=== PATIENT | male | born 1955 | race African-American/Black ===

== ENCOUNTER 2018-01-19 10:25 | Emergency (ER) | payer OTHER ==
[~2018-01-19] VITALS: Ht 180.3 cm; Wt 83.6 kg
[~2018-01-19 10:25] MED LIST: ALBU17AE27 IH; BECL8.7A5 PO; FERR-89 PO; FLUT16H NASAL; GABA-318 PO; GLYB5 PO; HYDR-3965 PO; LISI40TA4 PO; LORA10TA7 PO; METF500T6 PO; PANT40TA25 PO
[2018-01-19 11:22] LABS: GLUCOSE,POINT OF CARE 133 MG/DL (70-110)
[2018-01-19] MEDS ORDERED: ACETAMINOPHEN 325 MG TABLET PO ONE (11:45)
[2018-01-19] MEDS ORDERED: GuaiFENesin/D-METHORPHAN [SUGAR-FREE] 200-20MG/10 ML SYRUP UDCUP PO ONE (11:45)
[2018-01-19] MEDS ORDERED: IPRATROPIUM BROMIDE 0.5 MG/2.5 ML NEB SOLUTION NEB ONE (11:45)
[2018-01-19] MEDS ORDERED: ALBUTEROL SULFATE 2.5 MG/0.5 ML NEB SOLUTION NEB ONE (11:45)
[2018-01-19] MEDS ORDERED: 0.9% SODIUM CHLORIDE 5 ML NEB SOLUTION NEB ONE (11:58)
[2018-01-19] MEDS ORDERED: AZITHROMYCIN 250 MG TABLET PO ONE (13:00)
[2018-01-19 13:13] VITALS: BP 148/68
== END 2018-01-19 13:13 | disposition home or self-care (01) ==
LOC: EMS 10:26
DX: J40 Bronchitis, not specified as acute or chronic (principal); E11.9 Type 2 diabetes mellitus without complications; I10 Essential (primary) hypertension; F17.210 Nicotine dependence, cigarettes, uncomplicated; Z88.0 Allergy status to penicillin; Z88.6 Allergy status to analgesic agent
CPT/HCPCS: 71046; 82962; 94640; 99284; J7613

== ENCOUNTER 2019-11-06 10:41 | Inpatient (IN) | payer MEDICARE, OTHER ==
[~2019-11-06] VITALS: Ht 180.3 cm; Wt 72.8 kg
[~2019-11-06 10:41] MED LIST changes: -GABA-318 PO; +GABA600T10 PO; +METF-960 PO; -METF500T6 PO
[2019-11-06] MEDS ORDERED: HYDR-4061 PO (11:10)
[2019-11-06] MEDS ORDERED: BECL10.62 IH (11:10)
[2019-11-06] MEDS ORDERED: ALBU8HFA IH (11:10)
[2019-11-06 11:15] LABS: GLUCOSE,POINT OF CARE 35 MG/DL (70-110)
[2019-11-06] MEDS ORDERED: DEXTROSE 50%-WATER 25 GM/50 ML SYRINGE IVP ONE ×2 (11:15→16:53)
[2019-11-06] MEDS ORDERED: DEXTROSE 5%-0.45% SODIUM CHL 1,000 ML IV ONE ×2 (11:15→12:00)
[2019-11-06] MEDS ORDERED: DEXTROSE 50%-WATER 25 GM/50 ML SYRINGE IVP PRN (12:00)
[2019-11-06 12:04] LABS: GLUCOSE,POINT OF CARE 155 MG/DL (70-110)
[2019-11-06 12:04] LABS: GLUCOSE,POINT OF CARE 259 MG/DL (70-110)
[2019-11-06] MEDS ORDERED: AmLODIPine BESYLATE 10 MG TABLET PO ONE (14:15)
[2019-11-06 14:49] LABS: GLUCOSE,POINT OF CARE 118 MG/DL (70-110)
[2019-11-06 14:49] LABS: GLUCOSE,POINT OF CARE 166 MG/DL (70-110)
[2019-11-06 15:16] VITALS: BP 169/87
[2019-11-06] MEDS: HEPARIN SODIUM,PORCINE 5,000 UNITS/ML VIAL SQ SCH (15:46)
[2019-11-06] MEDS ORDERED: SODIUM BICARBONATE [ADULT] 8.4% 50 MEQ/50 ML SYRINGE IVP ONE (16:53)
[2019-11-06] MEDS: INSULIN LISPRO 100 UNITS/ML SQ PRN ×2 (18:07→20:49)
[2019-11-06 19:01] VITALS: BP 174/88
[2019-11-06] MEDS: ACETAMINOPHEN 325 MG TABLET PO PRN (19:17)
[2019-11-06 19:30] VITALS: BP 143/79
[2019-11-06 19:44] LABS: BASOPHILS % (AUTO) 0.8 % (0.0-2.0); EOSINOPHILS % (AUTO) 1.3 % (1.0-6.0); HEMATOCRIT 41.7 % (41-53); HEMOGLOBIN 13.5 g/dL (13.5-17.5); LYMPHOCYTES # (AUTO) 2.3 K/uL (1.0-4.8); LYMPHOCYTES % (AUTO) 23.2 % (22.0-44.0); MEAN CORPUSCULAR HEMOGLOBIN 26.4 pg (26.0-34.0); MEAN CORPUSCULAR HGB CONC 32.4 G/dL (31.0-37.0); MEAN CORPUSCULAR VOLUME 81 fL (80-100); MONOCYTES # (AUTO) 0.9 K/uL (0.1-1.0); MONOCYTES % (AUTO) 8.8 % (2.0-9.0); NEUTROPHILS # (AUTO) 6.4 K/uL (1.8-7.7); NEUTROPHILS % (AUTO) 65.9 % (40.0-70.0); PLATELET COUNT (AUTO) 343 K/uL (150-450); RED BLOOD CELL COUNT(AUTO) 5.12 MIL/uL (4.50-5.90); RED CELL DISTRIBUTION WIDTH 15.8 % (11.5-14.5)
[2019-11-06 19:54] LABS: ANION GAP 7 mmol/L (8-16); CALCIUM, TOTAL 8.5 mg/dL (8.8-10.5); CARBON DIOXIDE 30 mmol/L (22-29); CHLORIDE 102 mmol/L (98-107); GLOMERULAR FILTR. RATE CALC > 60 mL/min (>60); GLUCOSE,RANDOM 112 mg/dL (70-110); POTASSIUM 3.8 mmol/L (3.5-5.1); SODIUM SERUM 139 mmol/L (136-145); UREA NITROGEN, BLOOD 17 mg/dL (7-18)
[2019-11-06] MEDS: DOCUSATE SODIUM 100 MG CAPSULE PO SCH (20:46)
[2019-11-06 23:15] VITALS: BP 174/94
[2019-11-06] MEDS: HYDROCODONE/ACETAMINOPHEN 5-325 MG TABLET PO PRN (23:28)
[2019-11-07] MEDS: HEPARIN SODIUM,PORCINE 5,000 UNITS/ML VIAL SQ SCH ×4 (00:16→23:41)
[2019-11-07] MEDS: CloNIDine HCL 0.1 MG TABLET PO PRN ×2 (00:16→19:44)
[2019-11-07 04:30] VITALS: BP 156/88
[2019-11-07] MEDS: HYDROCODONE/ACETAMINOPHEN 5-325 MG TABLET PO PRN ×4 (04:33→21:32)
[2019-11-07] MEDS: ALBUTEROL SULFATE 2.5 MG/0.5 ML NEB SOLUTION NEB PRN ×2 (04:58→14:53)
[2019-11-07] MEDS: INSULIN LISPRO 100 UNITS/ML SQ PRN ×3 (06:01→17:39)
[2019-11-07 07:38] LABS: GLUCOMETER DEV NAME(LOC) 6N.1; GLUCOSE,POINT OF CARE 229 MG/DL (70-110)
[2019-11-07 07:38] LABS: GLUCOMETER DEV NAME(LOC) 6N.1; GLUCOSE,POINT OF CARE 182 MG/DL (70-110)
[2019-11-07 07:38] LABS: GLUCOMETER DEV NAME(LOC) 6N.1; GLUCOSE,POINT OF CARE 203 MG/DL (70-110)
[2019-11-07 08:14] VITALS: BP 151/89
[2019-11-07] MEDS: FAMOTIDINE 20 MG TABLET PO SCH (08:58)
[2019-11-07] MEDS: DOCUSATE SODIUM 100 MG CAPSULE PO SCH ×2 (08:58→21:00)
[2019-11-07 11:36] VITALS: BP 147/81
[2019-11-07] MEDS: ACETAMINOPHEN 325 MG TABLET PO PRN ×2 (11:41→17:44)
[2019-11-07 13:15] LABS: GLUCOMETER DEV NAME(LOC) 4E.2; GLUCOSE,POINT OF CARE 177 MG/DL (70-110)
[2019-11-07 15:39] VITALS: BP 140/80
[2019-11-07 19:19] LABS: GLUCOMETER DEV NAME(LOC) 4E.2; GLUCOSE,POINT OF CARE 152 MG/DL (70-110)
[2019-11-07 19:32] VITALS: BP 181/94
[2019-11-07 22:45] LABS: GLUCOMETER DEV NAME(LOC) 6N.1; GLUCOSE,POINT OF CARE 178 MG/DL (70-110)
[2019-11-07 23:21] VITALS: BP 163/97
[2019-11-08] MEDS: HYDROCODONE/ACETAMINOPHEN 5-325 MG TABLET PO PRN ×2 (01:20→09:08)
[2019-11-08 03:41] VITALS: BP 168/106
[2019-11-08] MEDS: CloNIDine HCL 0.1 MG TABLET PO PRN (03:41)
[2019-11-08 05:14] VITALS: BP 151/68
[2019-11-08] MEDS: INSULIN LISPRO 100 UNITS/ML SQ PRN ×2 (05:44→11:28)
[2019-11-08 06:09] LABS: GLUCOMETER DEV NAME(LOC) 4E.2; GLUCOSE,POINT OF CARE 164 MG/DL (70-110)
[2019-11-08 06:38] LABS: BASOPHILS % (AUTO) 0.3 % (0.0-2.0); EOSINOPHILS % (AUTO) 2.5 % (1.0-6.0); HEMATOCRIT 38.8 % (41-53); HEMOGLOBIN 12.4 g/dL (13.5-17.5); LYMPHOCYTES # (AUTO) 2.5 K/uL (1.0-4.8); LYMPHOCYTES % (AUTO) 35.9 % (22.0-44.0); MEAN CORPUSCULAR HEMOGLOBIN 26.2 pg (26.0-34.0); MEAN CORPUSCULAR VOLUME 82 fL (80-100); MONOCYTES # (AUTO) 0.7 K/uL (0.1-1.0); MONOCYTES % (AUTO) 10.6 % (2.0-9.0); NEUTROPHILS # (AUTO) 3.6 K/uL (1.8-7.7); NEUTROPHILS % (AUTO) 50.7 % (40.0-70.0); PLATELET COUNT (AUTO) 294 K/uL (150-450); RED BLOOD CELL COUNT(AUTO) 4.74 MIL/uL (4.50-5.90); RED CELL DISTRIBUTION WIDTH 15.8 % (11.5-14.5)
[2019-11-08 06:53] LABS: ANION GAP 4 mmol/L (8-16); CALCIUM, TOTAL 8.3 mg/dL (8.8-10.5); CARBON DIOXIDE 29 mmol/L (22-29); CHLORIDE 103 mmol/L (98-107); CREATININE 1.06 mg/dL (0.60-1.30); GLOMERULAR FILTR. RATE CALC > 60 mL/min (>60); GLUCOSE,RANDOM 157 mg/dL (70-110); POTASSIUM 3.7 mmol/L (3.5-5.1); SODIUM SERUM 136 mmol/L (136-145); UREA NITROGEN, BLOOD 13 mg/dL (7-18)
[2019-11-08 08:09] VITALS: BP 147/87
[2019-11-08] MEDS: DOCUSATE SODIUM 100 MG CAPSULE PO SCH (09:00)
[2019-11-08] MEDS: HEPARIN SODIUM,PORCINE 5,000 UNITS/ML VIAL SQ SCH (09:03)
[2019-11-08] MEDS: FAMOTIDINE 20 MG TABLET PO SCH (09:03)
[2019-11-08] MEDS: ALBUTEROL SULFATE 2.5 MG/0.5 ML NEB SOLUTION NEB PRN (10:41)
[2019-11-08] MEDS ORDERED: MAGNESIUM OXIDE 400 MG TABLET PO ONE (10:45)
[2019-11-08 11:15] VITALS: BP 167/95
[2019-11-08] MEDS ORDERED: METF-960 PO (12:16)
[2019-11-08 14:50] LABS: GLUCOMETER DEV NAME(LOC) 6N.1; GLUCOSE,POINT OF CARE 181 MG/DL (70-110)
== END 2019-11-08 14:10 | disposition home or self-care (01) | DRG 637 ==
LOC: EMS 10:42 → 4E 13:40
PROVIDERS: ADMIT Internal Medicine; ATTEND Internal Medicine
DX: E11.649 Type 2 diabetes mellitus with hypoglycemia without coma (principal); G93.41 Metabolic encephalopathy; J44.9 Chronic obstructive pulmonary disease, unspecified; E83.42 Hypomagnesemia; I10 Essential (primary) hypertension; K75.9 Inflammatory liver disease, unspecified; E11.65 Type 2 diabetes mellitus with hyperglycemia; Z79.4 Long term (current) use of insulin; Z88.0 Allergy status to penicillin; Z88.6 Allergy status to analgesic agent; Z83.3 Family history of diabetes mellitus; Z87.891 Personal history of nicotine dependence
CPT/HCPCS: 83735; 87070; 87205; 94640; G0378; J1644; J3490